=== PATIENT | male | born 1970 | race Caucasian/White ===

== ENCOUNTER → 2021-02-14 14:14 | Outpatient (CLI) | payer BC, SELFPAY ==
[2021-02-14 17:25] LABS: Absolute Lymphocyte Count 4.12 X10^3/uL (0.83-4.51); Absolute Neutrophil Count 5.5 X10^3/uL (2.0-7.7); Basophil% 0.9 % (0-1); Eosinophil# 0.25 X10^3/uL; Eosinophils% 2.3 % (0-5); Hematocrit 45.8 % (40-54); Hemoglobin 15.6 g/dL (13.0-16.5); Lymphocyte # 4.12 X10^3/ul (0.83-4.51); Lymphocyte % 38.3 % (19-41); Mean Corp Hgb Conc 34.1 g/dL (32-36); Mean Corpuscular Hgb 30.9 pg (27.0-32.0); Mean Corpuscular Volume 90.7 fL (80-94); Mean Platelet Vol. 8.9 fl (6.2-12.0); Monocyte% 7.4 % (0-10); NRBC Flagged by Analyzer 0 % (0-5); Neutrophil # 5.45 X10^3/uL (2.7-7.7); Neutrophil % 50.8 % (47-70); POSITIVE MORPHOLOGY YES; Platelet Count 350 K/mm3 (150-450); RBC Distribution Width CV 14.2 % (11.6-14.6); RBC Distribution Width SD 47.6 fl (35.1-43.9); Red Blood Count 5.05 M/mm3 (4.6-6.2); White Blood Count 10.8 K/mm3 (4.4-11.0)
[2021-02-14 17:32] LABS: Differential Indicated SCAN CRITERIA MET
[2021-02-14 17:34] LABS: Vitamin B12 382 pg/mL (211-911)
[2021-02-14 17:35] LABS: Hemoglobin A1c 5.7 % (3.8-5.6)
[2021-02-14 17:46] LABS: ALB/GLOB Ratio 0.9 RATIO (0.9-2.4); AST(SGOT) 14 U/L (15-37); Alanine Aminotransfer ALT/SGPT 27 U/L (16-61); Albumin, Serum 3.6 g/dL (3.2-5.0); Alkaline Phosphatase 59 U/L (45-117); Anion Gap 7 (5-15); BUN 16 mg/dL (7-18); BUN/Creat Ratio 17.9 RATIO (10-20); Calcium,Total 8.8 mg/dL (8.5-10.1); Chloride 107 mmol/L (98-107); Creatinine, Serum 0.89 mg/dL (0.70-1.30); EST Glomerular Filtration Rate 95 mL/min (>60); Est Glom Filt Rate - Afr Amer 115 mL/min (>60); Glucose 88 mg/dL (74-106); PSA,Total - Annual Screen 0.64 ng/mL (0.00-4.00); Potassium 3.9 mmol/L (3.5-5.1); Protein, Total 7.6 g/dL (6.4-8.2); Sodium Level 138 mmol/L (136-145); Thyroid Stim Hormone (TSH) 0.94 uIU/mL (0.358-3.74)
[2021-02-14 18:18] LABS: Reactive Lymphocyte 2+
[2021-02-14 18:19] LABS: Erythrocyte Sedimentation Rate 13 mm/hr (0-20); Platelet Estimate ADEQUATE (ADEQ); Red Cell Morphology NORM C+C NORMAL (NORM C&C)
== END ==
PROVIDERS: PCP Family Medicine; Referring Provider Family Medicine; Visit Provider Family Medicine
DX: R53.83 Other fatigue (principal); R35.81 Nocturnal polyuria
CPT/HCPCS: 36415; 80053; 82607; 82746; 83036; 84153; 84443; 85025; 85652; G0103

== ENCOUNTER 2021-11-22 21:56 | Emergency (ER) | payer OTHER, BC, SELFPAY ==
[2021-11-22 21:57] VITALS: BP 135/77; PULSE 80; RESP 16; TEMP 36.5; O2SAT 98; BMI 34.8
--- NOTE | 2021-11-22 22:30 | US_ITS ---
EXAM: US SCROTUM CLINICAL INDICATION: R testicle pain TECHNIQUE: Realtime ultrasound of the testicles was performed with grayscale and Color Doppler analysis. This report was created using [employer] report Handango technology. COMPARISON: None. FINDINGS: RIGHT TESTICLE: 4.4 x 2.5 x 2.1 cm. Normal in size and echotexture. No focal lesion. Normal blood flow is present. LEFT TESTICLE: 4.2 x 2.6 x 1.9 cm. Normal in size and echotexture. No focal lesion. Normal blood flow is present. EPIDIDYMIDES: Unremarkable. Normal in size and echotexture, without focal lesion. Normal color Doppler flow pattern in the epididymis. SCROTUM: Unremarkable. No hydrocele. No varicocele. US/Testicular with Arterial Flow IMPRESSION: No acute findings in the scrotum. Electronically Signed: Tre Colorado MD at 0:00 EDT ,
--- NOTE | 2021-11-22 22:30 | EDS_ITS ---
HPI History of Present Illness Chief Complaint: Male Pain/Injury Informant: patient Pain Onset: Yesterday Context: Sudden Onset Timing: Continuous Current Severity: Moderate Maximum Severity: Moderate Worsened by: standing Relieved by: sitting/lying Narrative Narrative: Patient states he was on the top of a stepladder lifting some heavy boxes in which he was engaging his core, he did not notice anything suddenly during that but he noticed about 20 minutes later that his right hemiscrotum/testicle was hurting and swollen. It has been like that ever since. No nausea or vomiting. No fevers. No urinary symptoms or dysuria. Normal bowel movements. History cholecystectomy no other abdominal surgeries no history of hernias. PFSH PFSH Medical History Smoker Home Medications finasteride 1 mg tablet (Propecia) 1 mg PO DAILY 11/22/21 [History Last Taken Unknown] Allergy/AdvReac Type Severity Reaction Status Date / Time No Known Allergies Allergy Verified 11/22/21 21:58 Surgical History History of cholecystectomy Social History Smoking Status: Current every day smoker tobacco type: cigarettes ROS ROS ED Constitutional Constitutional ED: Denies chills or fever(s) Eyes Eyes: Denies change in vision or diplopia ENT ENT ED: Denies rhinorrhea or sore throat Cardiovascular Cardiovascular: Denies chest pain or palpitations Respiratory/Chest Respiratory/Chest: Denies cough or dyspnea Gastrointestinal Gastrointestinal: Denies abdominal pain, diarrhea, nausea or vomiting Genitourinary Genitourinary ED: Reports as per HPI, scrotal swelling and testicular swelling; Denies dysuria or hematuria Musculoskeletal Musculoskeletal: Denies back pain or neck pain Integumentary Denies abscess or rash Neurologic Neurologic: Denies headache(s), paresthesias or weakness Psychiatric Psychiatric: Denies anxiety or suicidal thoughts EXAM Physical Exam Const Vital Signs: 11/22/21 21:57 Temperature 97.7 F L Temperature Source Temporal Pulse Rate 80 Respiratory Rate 16 Blood Pressure 135/77 H Blood Pressure Mean 96 Pulse Ox 98 Oxygen Delivery Method Room Air Positive well nourished and well developed General Appearance ED: well developed and NAD HEENT Reports moist mucous membranes normocephalic and atraumatic Eyes PERRL and EOMs intact bilaterally Neck full ROM and supple Resp normal respiratory effort and clear to auscultation bilaterally Cardio regular rate, regular rhythm and no murmurs GI non-tender and non-distended Auscultation: normoactive bowel sounds Palpation: soft Narrative: examined while standing. penis normal. Testes: testicular swelling right (And tender especially posteriorly, but lie is either abnormal or there is an accessory swelling vs hyphema vs hernia; tender up into the inguinal ring on the right but difficult to discern if there is a hernia/mass due to obesity. No tenderness on the left. Cremasterics appear intact.) Back/Spine no CVA tenderness General Back: other FROM Extremity normal to inspection General Extremety ED: Negative for edema, pulses abnormal or tenderness General Extremity: Negative for edema or pulses abnormal Neuro oriented x3, CN's II-XII intact bilaterally and no sensory deficits noted Sensorium / Orientation: awake and alert Motor Exam: strength 5/5 throughout Skin no rashes or lesions noted and no wounds MDM MDM MDM Narrative Medical decision making narrative: Exam was concerning for orchitis, epididymitis, or both; difficult to tell if there is a mass/hernia or not. Ultrasound of the scrotum shows no evidence of epididymitis or orchitis or mass. I have to assume this could be an indirect hernia. He does not have any symptoms of strangulation. Obtained a CT to characterize further, it shows that it is a fat-containing indirect hernia without bowel. Reassured, if this does not go away on its own he can follow-up with the surgeon to see whether herniorrhaphy would be indicated for this or not. Lab Data Attestation: I reviewed the patient's lab results. Labs: Laboratory Results - last 24 hr 11/22/21 11/23/21 11/23/21 23:00 00:50 00:50 WBC 12.1 H RBC 4.76 Hgb 14.9 Hct 44.0 MCV 92.4 MCH 31.3 MCHC 33.9 RDW Std Deviation 51.1 H RDW Coeff of [place] 14.9 H Plt Count 312 MPV 8.4 Immature Gran % (Auto) 0.200 Neut % (Auto) 48.0 Lymph % (Auto) 37.5 [place] % (Auto) 10.1 H Eos % (Auto) 3.5 Baso % (Auto) 0.7 Absolute Neuts (auto) 5.8 Absolute Lymphs (auto) 4.52 H Nucleated RBC % 0 Anisocytosis 1+ Sodium 141 Potassium 4.3 Chloride 110 H Carbon Dioxide 27.0 Anion Gap 4 L BUN 23 H Creatinine 0.90 Estim Creat Clear Calc 101.10 Est GFR (MDRD) Af Amer 113 Est GFR (MDRD) Non-Af 93 BUN/Creatinine Ratio 25.4 H Glucose 110 H Calcium 8.9 Urine Color Yellow Urine Clarity Clear Urine pH 6.0 Ur Specific [place] 1.020 Urine Protein 30 H Urine Glucose (UA) Normal Urine Ketones Negative Urine Occult Blood 25 H Urine Nitrite Negative Urine Bilirubin Negative Urine Urobilinogen Normal Ur Leukocyte Esterase Negative Urine RBC 0 SEEN Urine WBC 0 SEEN Ur Squamous Epith Cells 0 SEEN Urine Bacteria 0 SEEN Urine Mucus 0 SEEN Radiography Diagnostic Testing: Clinical Impression(s) from Imaging Studies Testicular Ultrasound 11/22/21 22:30 IMPRESSION: No acute findings in the scrotum. Electronically Signed: Tre Colorado MD at 0:00 EDT Reading Location ID and State: [address] [place] [address] Tel , Service support , Abdomen/Pelvis CT 11/23/21 00:41 IMPRESSION: Small fat-containing right inguinal hernia. No herniated bowel. Electronically Signed: Tre Colorado MD at 2:06 EDT Reading Location ID and State: [facility] [place] Tel , Service support , Discharge Plan Triage Chief Complaint: Male Pain/Injury ED Provider: Tevin Rangel Dx/Rx/DC Orders Clinical Impression: Indirect right inguinal hernia Instructions: ED Hernia (Adult) Prescriptions: No Action finasteride [Propecia] 1 mg Tablet 1 mg PO DAILY Primary Care Provider: Jony Gonzalez Referrals: Pop Noriega MD [Med Staff - Active Staff] - (call for follow up appt if symptoms/discomfort persists) Jony Gonzalez MD [Primary Care Provider] - Disposition Disposition: Home, Self Care
[2021-11-22 23:08] LABS: Bacteria 0 SEEN /hpf (None Seen); Mucous, Urine 0 SEEN /hpf (<or=2+); Red Blood Cells-Urine 0 SEEN /hpf (0-5); Squamous Epithelial Cells - UA 0 SEEN /hpf (0-5); White Blood Cells 0 SEEN /hpf (0-5)
[2021-11-22 23:18] LABS: Color, Urine Yellow (Yellow); Glucose, Dipstick Normal (Normal); Ketone-Dipstick Negative (Negative); Leukocyte Esterase-Dipstick Negative /ul (Negative); Nitrite-Dipstick Negative (Negative); Occult Blood-Urine 25 /ul (Negative); Protein-Dipstick 30 mg/dl (Negative); Urine Bilirubin Dipstick Negative (Negative); Urine Clarity Clear (Clear); Urine Urobilinogen Normal (Normal)
[2021-11-23] VITALS: BP 132/70; PULSE 74; RESP 16; O2SAT 96
--- NOTE | 2021-11-23 00:41 | CT_ITS ---
EXAM: CT ABDOMEN AND PELVIS WITH INTRAVENOUS CONTRAST CLINICAL INDICATION: inguinal hernia TECHNIQUE: Helically acquired images were obtained of the abdomen and pelvis with intravenous contrast. This CT exam was performed using one or more of the following dose reduction techniques: automated exposure control, adjustment of the mA and/or kV according to patient size, and/or use of iterative reconstruction technique. This report was created using [employer] report generation technology. CONTRAST: IV 100mL Isovue-370 COMPARISON: None. FINDINGS: LOWER THORAX: Bibasilar dependent atelectasis. No cardiomegaly. No significant pericardial effusion. ABDOMEN: LIVER: Unremarkable. Homogeneous. No focal mass. GALLBLADDER AND BILE DUCTS: Cholecystectomy. No intra- or extrahepatic biliary ductal dilation. PANCREAS: Unremarkable. No focal cystic or solid mass. SPLEEN: Unremarkable. Normal size without focal cystic or solid mass. ADRENALS: Unremarkable. No nodules. KIDNEYS AND URETERS: Unremarkable. Normal renal size and position. No hydronephrosis. STOMACH AND BOWEL: Unremarkable. No stomach or bowel distention. No focal inflammatory change. PELVIS: APPENDIX: The appendix is normal. BLADDER: Unremarkable. REPRODUCTIVE: Unremarkable as visualized. No mass. ABDOMEN and PELVIS: INTRAPERITONEAL SPACE: Unremarkable. No ascites or other fluid collection. No free air. BONES/JOINTS: Unremarkable. No suspicious lytic or blastic abnormality. SOFT TISSUES: Small fat-containing right inguinal hernia. VASCULATURE: Unremarkable. Abdominal aorta is non-dilated. LYMPH NODES: Unremarkable. No enlarged lymph nodes. CT/Abdomen/Pelvis W IV Cont ONLY IMPRESSION: Small fat-containing right inguinal hernia. No herniated bowel. Electronically Signed: Tre Colorado MD at 2:06 EDT ,
[2021-11-23 01:04] LABS: Absolute Lymphocyte Count 4.52 X10^3/uL (0.83-4.51); Absolute Neutrophil Count 5.8 X10^3/uL (2.0-7.7); Basophil# 0.08 X10^3/uL; Basophil% 0.7 % (0-1); Eosinophil# 0.42 X10^3/uL; Eosinophils% 3.5 % (0-5); Hemoglobin 14.9 g/dL (13.0-16.5); Lymphocyte # 4.52 X10^3/ul (0.83-4.51); Lymphocyte % 37.5 % (19-41); Mean Corp Hgb Conc 33.9 g/dL (32-36); Mean Corpuscular Hgb 31.3 pg (27.0-32.0); Mean Corpuscular Volume 92.4 fL (80-94); Mean Platelet Vol. 8.4 fl (6.2-12.0); Monocyte# 1.22 X10^3/uL; Monocyte% 10.1 % (0-10); NRBC Flagged by Analyzer 0 % (0-5); Neutrophil # 5.79 X10^3/uL (2.7-7.7); POSITIVE MORPHOLOGY YES; Platelet Count 312 K/mm3 (150-450); RBC Distribution Width CV 14.9 % (11.6-14.6); RBC Distribution Width SD 51.1 fl (35.1-43.9); Red Blood Count 4.76 M/mm3 (4.6-6.2); White Blood Count 12.1 K/mm3 (4.4-11.0)
[2021-11-23 01:06] LABS: Differential Indicated SCAN CRITERIA MET
[2021-11-23 01:16] LABS: Anion Gap 4 (5-15); BUN 23 mg/dL (7-18); BUN/Creat Ratio 25.4 RATIO (10-20); Calcium,Total 8.9 mg/dL (8.5-10.1); Chloride 110 mmol/L (98-107); EST Glomerular Filtration Rate 93 mL/min (>60); Est Glom Filt Rate - Afr Amer 113 mL/min (>60); Glucose 110 mg/dL (74-106); Potassium 4.3 mmol/L (3.5-5.1); Sodium Level 141 mmol/L (136-145)
[2021-11-23 01:33] LABS: Anisocytosis 1+
[2021-11-23 02:27] VITALS: BP 129/78; PULSE 75; RESP 16; O2SAT 97
== END 2021-11-23 02:28 | disposition home or self-care (01) ==
PROVIDERS: Emergency Provider Emergency Medicine; PCP Family Medicine; Visit Provider Emergency Medicine
DX: K40.90 Unilateral inguinal hernia, without obstruction or gangrene, not specified as recurrent (principal); F17.210 Nicotine dependence, cigarettes, uncomplicated; N50.89 Other specified disorders of the male genital organs
CPT/HCPCS: 74177; 76870; 80048; 81001; 85025; 93976; 96360; 99283; J7040; Q9967

== ENCOUNTER 2024-02-03 16:01 | Outpatient (CLI) | payer BC, SELFPAY ==
--- NOTE | 2024-02-03 16:09 | CT_ITS ---
STUDY: LOW DOSE CT LUNG CANCER SCREENING REASON FOR EXAM: Male, 53 years old. and gt; 28pik yr. and gt; 48 y. stopped tobacco 6m prior RADIATION DOSAGE (If Supplied By Facility): CTDIvol = ( 4.02 ) mGy, DLP = ( 153.00 ) mGycm TECHNIQUE: No contrast was administered. Low dose technique was utilized (average mAS-38 and kVp 120). 1.25 mm axial source images with a slice interval of 1.25-mm were reconstructed in lung windows. 2.5 mm axial source images with a slice interval of 2.5-mm were reconstructed in lung windows. 5.0 mm axial source images with a slice interval of 5.0-mm were reconstructed in soft tissue windows. COMPARISON: None. NODULES: No suspicious nodules are seen. Emphysema: Hyperinflation. Emphysematous changes with bullous formation more prominent in the upper lobes. Endobronchial lesion: None Aorta: Unremarkable. CORONARY ARTERIES: Coronary artery calcification is not seen. Heart: Unremarkable Pulmonary artery: Unremarkable Mediastinal nodes: Unremarkable Other chest and abdominal findings: CT/Low Dose CT Lung Screening IMPRESSION: Lung-RADS category 2 - Continue annual screening with LDCT in 12 months. IMPORTANT NOTES FOR USE: ACR Lung-RADS Version 1.1 Assessment Categories Release Date: 2018 Category: Coded 0-4 bases on nodule(s) with highest degree of suspicion. Negative screen is defined as categories 1 and 2; a positive screen is defined as categories 3 and 4. Category 3 and 4A nodules that are unchanged on interval CT should be coded as category 2, and individuals returned to screening in 12 months. Category 4X: Category 3 or 4 nodules with additional imaging findings that increase the suspicion of lung cancer, such as spiculation, GGN that doubles in size in 1 year, enlarged lymph notes, etc. Category Modifiers: S (significant finding unrelated to lung cancer) Electronically Signed: Frank Powell MD at 14:58 EDT ,
[2024-02-03 17:18] LABS: Absolute Lymphocyte Count 2.91 X10^3/uL (0.83-4.51); Absolute Neutrophil Count 4.5 X10^3/uL (2.0-7.7); Basophil# 0.06 X10^3/uL; Basophil% 0.7 % (0-1); Eosinophil# 0.28 X10^3/uL; Eosinophils% 3.3 % (0-5); Hematocrit 45.2 % (40-54); Hemoglobin 14.9 g/dL (13.0-16.5); Lymphocyte # 2.91 X10^3/ul (0.83-4.51); Lymphocyte % 34.2 % (19-41); Mean Corpuscular Hgb 29.8 pg (27.0-32.0); Mean Corpuscular Volume 90.4 fL (80-94); Mean Platelet Vol. 8.5 fl (6.2-12.0); Monocyte# 0.75 X10^3/uL; Monocyte% 8.8 % (0-10); NRBC Flagged by Analyzer 0 % (0-5); Neutrophil % 52.8 % (47-70); Platelet Count 374 K/mm3 (150-450); RBC Distribution Width CV 13.7 % (11.6-14.6); White Blood Count 8.5 K/mm3 (4.4-11.0)
[2024-02-03 17:31] LABS: Prothrombin Time (Protime)PT. 13.4 SECONDS (11.7-14.9)
[2024-02-03 17:32] LABS: Partial Thromboplast Time 22.7 Seconds (24.1-36.2)
[2024-02-03 17:47] LABS: ALB/GLOB Ratio 0.9 RATIO (0.9-2.4); AST(SGOT) 26 U/L (15-37); Alanine Aminotransfer ALT/SGPT 47 U/L (16-61); Albumin, Serum 3.5 g/dL (3.2-5.0); Alkaline Phosphatase 67 U/L (45-117); Anion Gap 6 (5-15); BUN 19 mg/dL (7-18); BUN/Creat Ratio 19.8 RATIO (10-20); Chloride 112 mmol/L (98-107); Cholesterol 198 mg/dL (200); Creatinine, Serum 0.96 mg/dL (0.70-1.30); EST Glomerular Filtration Rate 86 mL/min (>60); Est Glom Filt Rate - Afr Amer 104 mL/min (>60); Globulin 3.9 g/dL (2.2-4.2); Glucose 106 mg/dL (74-106); High Density Lipoprotein 41 mg/dL; PSA,Total - Annual Screen 0.64 ng/mL (0.00-4.00); Potassium 3.9 mmol/L (3.5-5.1); Protein, Total 7.4 g/dL (6.4-8.2); Sodium Level 141 mmol/L (136-145); Triglycerides 184 mg/dL; Very Low Density Lipoprotein 37 mg/dL (5-40)
[2024-02-03 17:52] LABS: Hemoglobin A1c 6.1 % (3.8-5.6)
[2024-02-06 12:07] LABS: Thrombin Time 18.6 sec (0.0-23.0)
== END 2024-02-03 23:59 | disposition home or self-care (01) ==
PROVIDERS: PCP Family Medicine; Referring Provider Family Medicine; Visit Provider Family Medicine
DX: F17.201 Nicotine dependence, unspecified, in remission (principal); R23.3 Spontaneous ecchymoses; E66.813 Obesity, class 3; R35.0 Frequency of micturition; Z12.5 Encounter for screening for malignant neoplasm of prostate; Z12.2 Encounter for screening for malignant neoplasm of respiratory organs
CPT/HCPCS: 36415; 71271; 80053; 80061; 83036; 84153; 84443; 85025; 85610; 85670; 85730; G0103

== ENCOUNTER → 2024-02-12 | Outpatient (CLI) | payer BC, SELFPAY | END | disposition home or self-care (01) | LOC: US 10:05 | PROVIDERS: PCP Family Medicine; Referring Provider Family Medicine; Visit Provider Family Medicine | DX: F17.201 Nicotine dependence, unspecified, in remission (principal) | CPT/HCPCS: 76775 ==